=== PATIENT | male | born 1985 | race Caucasian/White ===

== ENCOUNTER 2020-10-29 19:51 | Emergency (ER) | payer BC ==
[~2020-10-29] VITALS: Ht 195.6 cm; Wt 99.8 kg
== END 2020-10-30 06:10 | disposition home or self-care (01) ==
LOC: ER 19:51
DX: S31.31XA Laceration without foreign body of scrotum and testes, initial encounter (principal); S00.83XA Contusion of other part of head, initial encounter; W18.09XA Striking against other object with subsequent fall, initial encounter; Y93.89 Activity, other specified; Y92.89 Other specified places as the place of occurrence of the external cause; Y99.8 Other external cause status; Z03.818 Encounter for observation for suspected exposure to other biological agents ruled out